=== PATIENT | female | born 1975 | race Caucasian/White ===

== ENCOUNTER 2022-01-08 05:45 | Emergency (ER) | payer OTHER ==
[~2022-01-08] VITALS: Ht 182.9 cm; Wt 150.0 kg
[2022-01-08 06:02] LABS: BASOPHILS % (AUTO) 0.6 % (0.0-2.0); EOSINOPHILS % (AUTO) 1.6 % (1.0-6.0); HEMATOCRIT 40.8 % (36-46); HEMOGLOBIN 13.1 g/dL (12.0-16.0); LYMPHOCYTES % (AUTO) 13.8 % (22.0-44.0); MEAN CORPUSCULAR HEMOGLOBIN 23.4 pg (26.0-34.0); MEAN CORPUSCULAR HGB CONC 32.2 G/dL (31.0-37.0); MEAN CORPUSCULAR VOLUME 73 fL (80-100); MONOCYTES % (AUTO) 6.7 % (2.0-9.0); NEUTROPHILS # (AUTO) 11.1 K/uL (1.8-7.7); NEUTROPHILS % (AUTO) 77.3 % (40.0-70.0); PLATELET COUNT (AUTO) 358 K/uL (150-450); RED BLOOD CELL COUNT(AUTO) 5.61 MIL/uL (4.00-5.20)
[2022-01-08] MEDS ORDERED: ONDANSETRON HCL 4 MG/2 ML VIAL IVP ONE (06:15)
[2022-01-08] MEDS ORDERED: FAMOTIDINE 10 MG/ML 2 ML VIAL IVP ONE (06:15)
[2022-01-08 06:16] LABS: ANION GAP 9 mmol/L (8-16); CALCIUM, TOTAL 8.9 mg/dL (8.8-10.5); CARBON DIOXIDE 32 mmol/L (22-29); CHLORIDE 99 mmol/L (98-107); CREATININE 1.01 mg/dL (0.60-1.30); GLOMERULAR FILTR. RATE CALC 59 mL/min (>60); GLUCOSE,RANDOM 123 mg/dL (70-110); POTASSIUM 3.4 mmol/L (3.5-5.1); SODIUM SERUM 140 mmol/L (136-145); UREA NITROGEN, BLOOD 19 mg/dL (7-18)
[2022-01-08 06:28] LABS: APPEARANCE,URINE CLEAR (CLEAR); BILIRUBIN,URINE NEGATIVE (NEGATIVE); GLUCOSE, URINE (UA) NEGATIVE (NEGATIVE); KETONES,URINE NEGATIVE (NEGATIVE); LEUKOCYTE ESTERASE ,URINE TRACE (NEGATIVE); NITRATE,URINE NEGATIVE (NEGATIVE); OCCULT BLOOD,URINE SMALL (NEGATIVE); PH,URINE 5.5 (5.0-8.0); PROTEIN,URINE TRACE mg/dL (NEGATIVE); SPECIFIC GRAVITIY, URINE 1.015 (1.003-1.030); UROBILINOGEN,URINE <=1.0 mg/dL (<=1.0)
[2022-01-08 06:29] LABS: ALANINE AMINOTRANSFERASE 19 U/L (12-78); ALBUMIN 3.7 g/dL (3.4-5.0); ALKALINE PHOSPHATASE 108 U/L (46-116); AMYLASE 42 U/L (25-115); ASPARTATE AMINOTRANSFERASE 12 U/L (15-37); BILIRUBIN,TOTAL 0.5 mg/dL (0.1-1.0); HCG,QUANTITATIVE < 1 mIU/mL (0-6); LIPASE 105 U/L (73-393); TOTAL PROTEIN, SERUM 8.2 g/dL (6.4-8.2)
[2022-01-08] MEDS ORDERED: BUPR-344 PO (06:30)
[2022-01-08] MEDS ORDERED: PROZ10 PO (06:30)
[2022-01-08] MEDS ORDERED: METF-845 PO (06:30)
[2022-01-08] MEDS ORDERED: ESOM20CA39 PO (06:30)
[2022-01-08 06:48] LABS: BACTERIA,URINE Few /HPF (None Seen); RBC,URINE 0-2 /HPF (0-2)
[2022-01-08] MEDS ORDERED: IOHEXOL 350 MG/ML 150 ML VIAL ONE (07:30)
[2022-01-08] MEDS ORDERED: SODIUM CHLORIDE 0.9% 100 ML ONE (07:31)
[2022-01-08] MEDS ORDERED: MORPHINE SULFATE 4 MG/ML SYRINGE IVP ONE (08:00)
[2022-01-08] MEDS ORDERED: SODIUM CHLORIDE 0.9% 1,000 ML IV ONE (08:00)
[2022-01-08 08:53] VITALS: BP 137/83
[2022-01-08] MEDS ORDERED: FAMO20 PO (08:54)
== END 2022-01-08 09:18 | disposition home or self-care (01) ==
LOC: EMS 05:45
DX: R10.12 Left upper quadrant pain (principal); R10.13 Epigastric pain; F10.20 Alcohol dependence, uncomplicated; E11.9 Type 2 diabetes mellitus without complications; F17.210 Nicotine dependence, cigarettes, uncomplicated; Z90.49 Acquired absence of other specified parts of digestive tract; Z98.890 Other specified postprocedural states; Z88.0 Allergy status to penicillin; Z88.1 Allergy status to other antibiotic agents
CPT/HCPCS: 36415; 74177; 80053; 81001; 82150; 83690; 84484; 84702; 85025; 93005; 96361; 96374; 96375; 99285; G0480; J2270; J2405; J3490; J7030; J7050; Q9967

== ENCOUNTER → 2022-09-09 | Day surgery (SDC) | payer OTHER ==
[2022-09-08 09:05] LABS: COVID AG,FIA SOURCE NASAL SWAB
[~2022-09-09] VITALS: Ht 182.9 cm; Wt 145.4 kg
[~2022-09-09] MED LIST: BUPR-344 PO; CHL25 PO; ESOM20CA39 PO; FAMO20 PO; LIDOCAINE/PF 2% 5 ML VIAL IM ONE; LOSA-382 PO; METF-845 PO; MIDAZOLAM HCL 2 MG/2 ML VIAL ONE; NALT50TA6 PO; PROPOFOL 1% 20 ML VIAL IVP ONE; PROZ10 PO; SODIUM CHLORIDE 0.9% 1,000 ML IV ONE
== END | disposition home or self-care (01) ==
LOC: SURGERY 06:37
PROVIDERS: ATTEND Internal Medicine Gastroenterology
DX: K20.90 Esophagitis, unspecified without bleeding (principal); K44.9 Diaphragmatic hernia without obstruction or gangrene; Z88.0 Allergy status to penicillin; G47.33 Obstructive sleep apnea (adult) (pediatric); E11.9 Type 2 diabetes mellitus without complications; F20.9 Schizophrenia, unspecified; I10 Essential (primary) hypertension; K21.9 Gastro-esophageal reflux disease without esophagitis; Z79.899 Other long term (current) drug therapy; Z20.822 Contact with and (suspected) exposure to COVID-19; Z98.890 Other specified postprocedural states
CPT/HCPCS: 87426; 43239; 88305; C9803; C1769; J2704; J3490; J2250